=== PATIENT | male | born 1985 ===

== ENCOUNTER 2016-10-11 11:14 | Emergency (ER) | payer BC, OTHER ==
[2016-10-11] MEDS ORDERED: ACETAMINOPHEN 325 MG TABLET PO ONE (11:50)
--- NOTE | 2016-10-11 11:53 | RADIOLOGY REPORT ---
HISTORY: Fever. COMPARISON: None. FINDINGS: The cardiomediastinal silhouette is within normal limits. The lungs are clear without confluent infiltrate, effusion, or pneumothorax. No displaced fracture or apparent osseous lesion. IMPRESSION: No acute radiographic abnormality. Final Electronic Signature: This report was electronically signed by Bridger Dejesus MD on 10/11/2016 11:51 AM. bcox /
[2016-10-11 11:57] LABS: HEMATOCRIT 43.1 % (42.0-54.0); HEMOGLOBIN 14.1 g/dL (14.0-18.0); MEAN CELL VOLUME 68.4 fL (80.0-100.0); MEAN CORPUS. HGB CONCENTRATION 32.7 g/dL (32.0-36.0); MEAN CORPUSCULAR HEMOGLOBIN 22.4 pg (29.0-35.0); MEAN PLATELET VOLUME 9.4 fL (7.4-10.4); PLATELET COUNT 295 X 10^3uL (130-440); RED CELL DISTRIBUTION WIDTH 13.6 % (11.5-14.5); WHITE BLOOD COUNT 13.9 X 10^3uL (3.9-10.7)
[2016-10-11 12:07] LABS: ALKALINE PHOSPHATASE 47 U/L (38-126); ALT 35 U/L (21-72); AST 18 U/L (17-59); BILIRUBIN, DIRECT 0.1 mg/dL (0.0-0.4); BILIRUBIN, TOTAL 1.1 mg/dL (0.2-1.3); BLOOD UREA NITROGEN 13 mg/dL (9-20); CALCIUM 9.1 mg/dL (8.4-10.2); CHLORIDE 104 mmol/L (98-107); EST GLOMERULAR FILTRATION RATE > 60 mL/min; GLUCOSE 102 mg/dL (70-100); LIPASE 38 U/L (23-300); POTASSIUM 3.4 mmol/L (3.5-5.1); SODIUM 138 mmol/L (137-145); TOTAL PROTEIN 7.8 g/dL (6.3-8.2)
[2016-10-11 12:11] LABS: MONOSCREEN NEGATIVE
[2016-10-11 12:16] LABS: BAND% (Manual) 11 % (0.0-1.0); LYMPHOCYTE % (Manual) 10 % (20.0-40.0); MONOCYTE % (Manual) 11 % (2.0-10.0); NEUTROPHIL % (Manual) 68 % (54.0-75.0)
[2016-10-11 12:30] LABS: PLATELET ESTIMATE ADEQUATE
--- NOTE | 2016-10-11 13:40 | ER PHYSICIAN DOCUMENTATION ---
Physician Documentation [facility] Name:Neville Mills Age:31 yrs Sex:Male :1985 Arrival Date:10/11/2016 Time:11:14 Bed4 Private MD: Khoi Islas Disposition: 10/11/16 13:20 Discharged to Home/Self Care. Impression: Fever of Unknown Origin (FUO). - Condition is Good. - Discharge Instructions: FEBRILE ILLNESS, Uncertain Cause (Adult), FEVER CONTROL (Adult), THERMOMETER USE. - Medical Reconciliation form form. - Follow up: Beth Harp MD; When: 2 - 3 days; Reason: Recheck today's complaints. - Problem is new. - Symptoms have improved. HPI: 10/11 13:17 This 31 yrs old /[place] Male presents to ER via Private Vehicle with sc complaints of Fever. 13:17 The patient reports fever, not measured (subjective). Onset: The symptom(s)/episode sc began/occurred 2 day(s) ago. Associated signs and symptoms: Pertinent positives: arthralgias, myalgias, nausea. Severity of symptoms: At their worst the symptoms were severe. The patient has experienced similar episodes in the past, a few times, today's symptoms are similar, to when the patient was apparently diagnosed with malaria as child, test sent out. Historical: - Allergies: No known drug Allergies; - Home Meds: 1. None - PMHx: None; - PSHx: None; - Tetanus: < 10 years. - Ebola Screening: : Patient denies exposure to infectious person. Patient denies travel to an Ebola-affected area in the 21 days before illness onset. . - Social history: Smoking status: Patient states was never smoker of tobacco. Patient uses alcohol occasionally. Patient/guardian denies using marijuana. ROS: 13:18 Eyes: Negative for injury, pain, redness, and discharge. sc ENT: Negative for injury, pain, and discharge. Neck: Negative for injury, pain, and swelling. Cardiovascular: Negative for chest pain, palpitations, and edema. Respiratory: Negative for shortness of breath, cough, wheezing, and pleuritic chest pain. Abdomen/GI: Negative for abdominal pain, nausea, vomiting, diarrhea, and constipation. Back: Negative for injury and pain. MS/Extremity: Negative for injury and deformity. Skin: Negative for injury, rash, and discoloration. 13:18 Neuro: Negative for headache, weakness, numbness, tingling, and seizure. sc 13:18 Constitutional: Positive for body aches, chills, fatigue, fever. Exam: Constitutional: This is a well developed, well nourished patient who is awake, alert, and in no acute distress. Head/Face: Normocephalic, atraumatic. Eyes: Pupils equal round and reactive to light, extra-ocular motions intact. Lids and lashes normal. Conjunctiva and sclera are non-icteric and not injected. Cornea within normal limits. Periorbital areas with no swelling, redness, or edema. ENT: Nares patent. No nasal discharge, no septal abnormalities noted. Tympanic membranes are normal and external auditory canals are clear. Oropharynx with no redness, swelling, or masses, exudates, or evidence of obstruction, uvula midline. Mucous membranes moist. Neck: Trachea midline, no thyromegaly or masses palpated, and no cervical lymphadenopathy. Supple, full range of motion without nuchal rigidity, or vertebral point tenderness. No meningismus. Chest/axilla: Normal chest wall appearance and motion. Nontender with no deformity. No lesions are appreciated. Cardiovascular: Regular rate and rhythm with a normal S1 and S2. No gallops, murmurs, or rubs. Normal PMI, no JVD. No pulse deficits. Respiratory: Lungs have equal breath sounds bilaterally, clear to auscultation and percussion. No rales, rhonchi or wheezes noted. No increased work of breathing, no retractions or nasal flaring. Abdomen/GI: Soft, non-tender, with normal bowel sounds. No distension or tympany. No guarding or rebound. No evidence of tenderness throughout. Back: No spinal tenderness. No costovertebral tenderness. Full range of motion. Skin: Warm, dry with normal turgor. Normal color with no rashes, no lesions, and no evidence of cellulitis. MS/ Extremity: Pulses equal, no cyanosis. Neurovascular intact. Full, normal range of motion, negative Homans's, calves equal bilaterally. 13:18 Neuro: Awake and alert, GCS 15, oriented to person, place, time, and situation. sc Cranial nerves II-XII grossly intact. Motor strength 5/5 in all extremities. Sensory grossly intact. Cerebellar exam normal. Normal gait. 13:18 Constitutional: The patient appears alert, awake, febrile. Vital Signs: 07:20 BP 161 / 99; Pulse 131; Resp 25; Temp 103.1; Pulse Ox 95% on R/A; Pain 5/10; st 11:59 Pulse 120 MON; Resp 21; Pulse Ox 93% ; st 12:04 Pulse 117 MON; Resp 26; Pulse Ox 94% ; st 13:05 Temp 99.9; st MDM: 11:27 Patient medically screened. nv 13:19 Differential diagnosis: viral Infection, bacterial infection, gastroenteritis. Data nv reviewed: vital signs, nurses notes, lab test result(s), radiologic studies, and as a result, I will continue to observe the patient. Counseling: I had a detailed discussion with the patient and/or guardian regarding: the historical points, exam findings, and any diagnostic results supporting the discharge/admit diagnosis, lab results, the need for outpatient follow up, to return to the emergency department if symptoms worsen or persist or if there are any questions or concerns that arise at home. Medication response: The patient's symptoms have improved. 10/11 12:08 Order name: BASIC METABOLIC PANEL; Complete Time: 13:03 [facility] 10/11 12:13 Interpretation: Normal Except: POTASSIUM 3.4; hypokalemia. nv 10/11 12:08 Order name: HEPATIC PANEL; Complete Time: 13:03 [facility] 10/11 12:13 Interpretation: Normal. nv 10/11 12:08 Order name: LIPASE; Complete Time: 13:03 [facility] 10/11 12:13 Interpretation: Normal. nv 10/11 12:10 Order name: CBC W/ MANUAL DIFFERENTIAL; Complete Time: 13:03 [facility] 10/11 12:13 Interpretation: Abnormal: WHITE BLOOD COUNT 13.9. nv 10/11 12:12 Order name: MONOSCREEN; Complete Time: 13:03 [facility] 10/11 12:13 Interpretation: Normal. nv 10/11 12:13 Order name: LACTATE; Complete Time: 12:14 [facility] 10/11 12:14 Interpretation: Normal. nv 10/11 13:32 Order name: INFLUENZA A/B [facility] 10/12 11:54 Order name: BLOOD CULTURE [facility] 10/12 11:54 Order name: BLOOD CULTURE [facility] 10/11 11:56 Order name: CHEST; [place] [id number]; Complete Time: 12:13 [facility] 10/11 12:13 Interpretation: Normal. nv 10/11 11:29 Order name: I & O; Complete Time: 11:57 nv 10/11 11:29 Order name: Place Patient On Monitor; Complete Time: :57 nv Dispensed Medications: 11:40 Drug: Tylenol 975 mg; Route: PO; st 13:16 Follow up: Response: fever decreased. st 13:39 Drug: Gentamicin Ointment 0.3 % 0.5 inches; Route: Ophthalmic; Site: right eye; Point of Care Testing: Urine Dip: 13:05 pH: 5.5; ; Specific [place]: 1.030; Ketones: Negative; Glucose: Negative; Protein: st Positive (++); Leukocytes: Negative; Nitrite: Negative ; Blood: Small (+); Bilirubin: Negative ; Urobilinogen: Normal Signatures: Michelle Guzman RN RN st Chew, Scott, MD MD nv
--- NOTE | 2016-10-11 13:40 | ER NURSING DOCUMENTATION ---
Nurse's Notes [facility] Name:Neville Mills Age:31 yrs Sex:Male :1985 Arrival Date:10/11/2016 Time:11:14 Bed4 Private MD: Diagnosis:Fever of Unknown Origin (FUO) Presentation: 10/11 11:20 Acuity: JAZMÍN 2 st 11:20 Presenting complaint: Patient states: pt has had a fever since yesterday with sore st throat right eye pain and body aches. 11:20 Method Of Arrival: Private Vehicle st 11:50 [facility] (pt was found to have a fever of [address] prior to arrival: Medication(s) given: Ibuprofen 800mg. Triage Assessment: 11:47 Pertinent positives: chills, earache, headache, myalgias, sore throat. General: Appears st ill, uncomfortable, Behavior is cooperative. Pain: Complains of pain in body aches, throat,right eye and right ear. Pain currently is 5 out of 10 on a pain scale. Pain began 1 day ago. EENT: Ear canal slightly red on the right side.. Eyes are tearing on iris of right eye Throat is pink. Cardiovascular: tachy. Respiratory: No deficits noted. GI: No deficits noted. Derm: Skin temperature is hot. Musculoskeletal: Reports feeling tired. Historical: - Allergies: No known drug Allergies; - Home Meds: 1. None - PMHx: None; - PSHx: None; - Tetanus: < 10 years. - Ebola Screening: : Patient denies exposure to infectious person. Patient denies travel to an Ebola-affected area in the 21 days before illness onset. . - Social history: Smoking status: Patient states was never smoker of tobacco. Patient uses alcohol occasionally. Patient/guardian denies using marijuana. Screenin:51 Infectious Disease Risk Other: pt has hx of having malaria his last episode was at the st age of 11. Abuse screen: Denies threats or abuse. Denies injuries from another. Nutritional screening: No deficits noted. Vital Signs: 07:20 BP 161 / 99; Pulse 131; Resp 25; Temp 103.1; Pulse Ox 95% on R/A; Pain 5/10; st 11:59 Pulse 120 MON; Resp 21; Pulse Ox 93% ; st 12:04 Pulse 117 MON; Resp 26; Pulse Ox 94% ; st 13:05 Temp 99.9; st ED Course: 11:18 Patient arrived in ED. ama 11:20 Michelle Guzman RN is Primary Nurse. st 11:[address] 11:27 Khoi Banerjee MD is Attending Physician. nh 11:34 First set of blood cultures drawn. Inserted peripheral IV: 20 gauge in left antecubital st area and blood collected. 11:52 Valuables Remains with patient Patient has correct armband on for positive st identification. Bed in low position. Call light in reach. monitor and storage bin tender on. Pulse ox on. NIBP on. 12:[address] 13:19 Beth Harp MD is Referral Physician. sc Administered Medications: 11:40 Drug: Tylenol 975 mg; Route: PO; st 13:16 Follow up: Response: fever decreased. st 13:39 Drug: Gentamicin Ointment 0.3 % 0.5 inches; Route: Ophthalmic; Site: right eye; Point of Care Testing: Urine Dip: 13:05 pH: 5.5; ; Specific [place]: 1.030; Ketones: Negative; Glucose: Negative; Protein: st Positive (++); Leukocytes: Negative; Nitrite: Negative ; Blood: Small (+); Bilirubin: Negative ; Urobilinogen: Normal Outcome: 13:20 Discharge ordered by . nh 13:39 Discharged to home ambulatory. st 13:39 Condition: improved 13:39 Discharge instructions given to patient, Instructed on discharge instructions, follow up and referral plans. medication usage, Prescriptions given X 1. 13:39 IV D/Dejan 13:40 [address] the ED[address] st 07 09:02 Discharge F/U Call: Unable to reach: no answer st Signatures: Michelle Guzman RN RN st Khoi Banerjee MD MD sc Huber Soriano, Reg Reg ama
[2016-10-11] MEDS ORDERED: GENTAMICIN 0.3% OPHTH OINTMENT 1 APPLIC APP ONE (13:49)
[2016-10-21 14:33] LABS: RED BLOOD COUNT 6.29 X 10^6uL (4.20-6.10)
== END 2016-10-11 13:40 | disposition home or self-care (01) ==
LOC: ER 11:14
DX: R50.9 Fever, unspecified (principal); M79.1 Myalgia; R53.83 Other fatigue; E87.6 Hypokalemia; Z86.13 Personal history of malaria
CPT/HCPCS: 71010; 80048; 80076; 83605; 83690; 85007; 85027; 86308; 87040; 87449; 99284